=== PATIENT | female | born 1965 | race Caucasian/White ===

== ENCOUNTER 2023-01-09 17:53 | Inpatient (IN) | payer OTHER, SELFPAY ==
[~2023-01-09 17:53] MED LIST: Iopamidol-370 76% 500 ML MDV (1 ML CHARGE) ONE
[2023-01-09] MEDS ORDERED: Morphine 4 MG/ML VIAL ONE ×2 (18:29→20:02)
[2023-01-09] MEDS ORDERED: Ondansetron PF 4 MG/2 ML Vial ONE (18:59)
[2023-01-09 19:37] LABS: #Basophils 0.1 thou/uL (0.0-0.2); #Eosinphils 0.1 thou/uL (0.0-0.7); #Lymphocytes 1.1 thou/uL (1.20-3.40); #Monocytes 0.6 thou/uL (0.11-0.59); #Neutrophils 11.2 thou/uL (1.40-6.50); %Basophils 0.5 % (0.0-1.0); %Eosinophils 0.6 % (0.0-10.0); %Lymphocytes 8.3 % (21.0-51.0); %Monocytes 4.8 % (0.0-10.0); %Neutrophils 85.8 % (42.0-75.0); Hemoglobin 12.8 g/dL (12.0-16.0); Mean Corpuscular HGB CONC 33.7 g/dL (32.0-36.0); Mean Corpuscular Hemoglobin 30.6 pg (27.0-31.0); Mean Corpuscular Volume 90.9 fl (78.0-98.0); Mean Platelet Volume 7.6 fL (7.4-10.4); Platelet Count 209 10x3/uL (130-400); Red Blood Cell (RBC) Count 4.18 mill/uL (4.20-5.40); White Blood Cell (WBC) Count 13.1 10x3/uL (4.8-10.8)
[2023-01-09 19:48] LABS: INR-International Normal Ratio 0.9; Prothrombin Time 12.9 sec (12.0-14.7)
[2023-01-09 19:49] LABS: PTT 25.9 sec (22.9-36.1)
[2023-01-09 20:11] LABS: ALT (SGPT) 12 U/L (8-55); AST (SGOT) 38 U/L (5-34); Albumin 3.9 g/dL (3.5-5.0); Alkaline Phosphatase 80 U/L (40-110); Anion Gap 15 mmol/L (10-20); BUN (Urea Nitrogen) 20 mg/dL (9.8-20.1); Bilirubin, Total 0.2 mg/dL (0.2-1.2); Calc. Creatinine Clearance 0 mL/min (70-130); Calcium 8.9 mg/dL (7.8-10.44); Carbon Dioxide 18 mmol/L (22-29); Chloride 110 mmol/L (98-107); Estimated GFR 85; Glucose 111 mg/dL (70-105); Lipase 60 U/L (8-78); Potassium 4.4 mmol/L (3.5-5.1); Protein, Total 6.9 g/dL (6.0-8.3); Sodium 139 mmol/L (136-145)
[2023-01-09] MEDS ORDERED: PROPOFOL 20 ML ONE (21:14)
[2023-01-09] MEDS ORDERED: Ondansetron PF 4 MG/2 ML Vial IVP PRN (21:23)
[2023-01-09] MEDS ORDERED: Morphine 4 MG/ML VIAL SLOW IVP PRN (21:23)
[2023-01-09] MEDS ORDERED: Dextrose 50% Abboject 50 ML SYRINGE SLOW IVP PRN (21:23)
[2023-01-09] MEDS ORDERED: hydrALAZINE 20 MG/ML VIAL SLOW IVP PRN (21:23)
[2023-01-09] MEDS ORDERED: Dextrose 5% in Water 1,000 ML IV PRN (21:23)
[2023-01-09] MEDS ORDERED: Sodium Chloride 0.9% 1,000 ML IV SCH (21:30)
[2023-01-09 23:55] LABS: Magnesium 1.9 mg/dL (1.6-2.6); Phosphorus 2.6 mg/dL (2.3-4.7)
[2023-01-10] MEDS ORDERED: Acetaminophen 500 MG TAB ONE ×3 (00:16→08:39)
[2023-01-10] MEDS ORDERED: traMADol HCl 50 MG TAB ONE ×3 (00:16→10:29)
[2023-01-10] MEDS: Acetaminophen 500 MG TAB PO SCH ×5 (00:31→21:11)
[2023-01-10] MEDS: traMADol HCl 50 MG TAB PO SCH ×5 (00:31→21:10)
[2023-01-10 01:43] VITALS: BMI 33.0
[2023-01-10 06:17] LABS: #Lymphocytes 1.5 thou/uL (1.20-3.40); #Monocytes 0.6 thou/uL (0.11-0.59); #Neutrophils 6.4 thou/uL (1.40-6.50); %Basophils 0.2 % (0.0-1.0); %Eosinophils 0.6 % (0.0-10.0); %Lymphocytes 17.8 % (21.0-51.0); %Monocytes 6.7 % (0.0-10.0); %Neutrophils 74.7 % (42.0-75.0); Hemoglobin 12.4 g/dL (12.0-16.0); Mean Corpuscular HGB CONC 34.3 g/dL (32.0-36.0); Mean Corpuscular Hemoglobin 31.3 pg (27.0-31.0); Mean Corpuscular Volume 91.3 fl (78.0-98.0); Mean Platelet Volume 7.3 fL (7.4-10.4); Platelet Count 192 10x3/uL (130-400); RBC Distribution Width 12.9 % (11.5-14.5); Red Blood Cell (RBC) Count 3.96 mill/uL (4.20-5.40); White Blood Cell (WBC) Count 8.5 10x3/uL (4.8-10.8)
[2023-01-10 06:47] LABS: Anion Gap 12 mmol/L (10-20); BUN (Urea Nitrogen) 13 mg/dL (9.8-20.1); Calc. Creatinine Clearance 122 mL/min (70-130); Calcium 8.2 mg/dL (7.8-10.44); Carbon Dioxide 18 mmol/L (22-29); Chloride 111 mmol/L (98-107); Estimated GFR 95; Glucose 112 mg/dL (70-105); Magnesium 1.7 mg/dL (1.6-2.6); Phosphorus 3.4 mg/dL (2.3-4.7); Potassium 3.7 mmol/L (3.5-5.1); Sodium 137 mmol/L (136-145)
[2023-01-10] MEDS ORDERED: Famotidine 20 MG TAB ONE (08:39)
[2023-01-10] MEDS: Gabapentin 300 MG CAP PO SCH ×3 (10:59→21:10)
[2023-01-10] MEDS: Polyethylene Glycol 3350 17 GM Packet PO SCH (10:59)
[2023-01-10] MEDS: Famotidine 20 MG TAB PO SCH ×2 (10:59→21:10)
[2023-01-10] MEDS: Senokot S 8.6-50 MG TAB PO SCH ×2 (10:59→21:10)
[2023-01-10] MEDS ORDERED: Midazolam HCl 2 mg/2 ml Vial ONE (11:56)
[2023-01-10] MEDS ORDERED: Bupivacaine PF 0.5% 30 ML VIAL ONE (11:56)
[2023-01-10] MEDS ORDERED: fentaNYL 50 mcg/mL 1 mL Vial ONE (11:56)
[2023-01-10] MEDS ORDERED: CEFAZOLIN 2 GM in Sodium Chloride 0.9% 100 ML IVPB SCH (12:00)
[2023-01-10] MEDS ORDERED: Sodium Chloride 0.9% 100 ML ONE (12:12)
[2023-01-10] MEDS ORDERED: CEFAZOLIN 2 GM VIAL ONE (12:12)
[2023-01-10] MEDS ORDERED: fentaNYL PF 100 MCG/2 ML SYRINGE ONE (12:17)
[2023-01-10] MEDS ORDERED: Ondansetron PF 4 MG/2 ML Vial ONE (12:45)
[2023-01-10] MEDS ORDERED: Bupivacaine HCl 0.5%/Epinephrine 1:200,000/PF 30 ml Vial ONE (12:45)
[2023-01-10] MEDS ORDERED: PROPOFOL 200 MG/20 ML VIAL ONE (12:45)
[2023-01-10] MEDS ORDERED: Ketorolac Tromethamine 30 MG/ML VIAL ONE (12:45)
[2023-01-10] MEDS ORDERED: Lidocaine 1% PF 5 ML VIAL ONE (12:45)
[2023-01-10] MEDS ORDERED: Dexamethasone 20 MG/5 ML VIAL ONE (12:45)
[2023-01-10] MEDS ORDERED: Promethazine HCl 25 MG/ML VIAL ONE (14:28)
[2023-01-10] MEDS ORDERED: HYDROmorphone 0.5 MG/0.5 ML SYRINGE ONE (14:32)
[2023-01-10] MEDS ORDERED: Ondansetron HCl/PF 4 MG/2 ML Vial IVP PRN (14:34)
[2023-01-10] MEDS ORDERED: Promethazine HCl 25 MG/ML VIAL IM PRN (14:34)
[2023-01-10] MEDS ORDERED: HYDROmorphone 2 MG/ML VIAL SLOW IVP PRN (14:34)
[2023-01-10] MEDS: Ibuprofen 800 MG TAB PO PRN (19:14)
[2023-01-10] MEDS: traMADol HCl 50 MG TAB PO PRN (19:15)
[2023-01-10] MEDS: CEFAZOLIN 2 GM in Sodium Chloride 0.9% 100 ML IVPB SCH (21:09)
[2023-01-11] MEDS: traMADol HCl 50 MG TAB PO SCH ×4 (03:56→21:27)
[2023-01-11] MEDS: CEFAZOLIN 2 GM in Sodium Chloride 0.9% 100 ML IVPB SCH (03:56)
[2023-01-11] MEDS: Acetaminophen 500 MG TAB PO SCH ×4 (03:56→21:26)
[2023-01-11] MEDS: Senokot S 8.6-50 MG TAB PO SCH ×2 (10:04→21:26)
[2023-01-11] MEDS: Gabapentin 300 MG CAP PO SCH ×3 (10:06→21:28)
[2023-01-11] MEDS: Famotidine 20 MG TAB PO SCH ×2 (10:06→21:26)
[2023-01-11] MEDS: Polyethylene Glycol 3350 17 GM Packet PO SCH (10:08)
[2023-01-11 11:01] LABS: #Eosinphils 0.1 thou/uL (0.0-0.7); #Lymphocytes 1.9 thou/uL (1.20-3.40); #Monocytes 0.8 thou/uL (0.11-0.59); #Neutrophils 8.2 thou/uL (1.40-6.50); %Basophils 0.3 % (0.0-1.0); %Eosinophils 0.6 % (0.0-10.0); %Lymphocytes 17.1 % (21.0-51.0); %Monocytes 7.5 % (0.0-10.0); %Neutrophils 74.5 % (42.0-75.0); Hemoglobin 12.7 g/dL (12.0-16.0); Mean Corpuscular Hemoglobin 30.7 pg (27.0-31.0); Mean Corpuscular Volume 90.5 fl (78.0-98.0); Mean Platelet Volume 7.4 fL (7.4-10.4); Platelet Count 212 10x3/uL (130-400); Red Blood Cell (RBC) Count 4.13 mill/uL (4.20-5.40)
[2023-01-11 11:27] LABS: Anion Gap 12 mmol/L (10-20); BUN (Urea Nitrogen) 13 mg/dL (9.8-20.1); Calc. Creatinine Clearance 117 mL/min (70-130); Carbon Dioxide 22 mmol/L (22-29); Chloride 107 mmol/L (98-107); Estimated GFR 90; Glucose 90 mg/dL (70-105); Magnesium 2.1 mg/dL (1.6-2.6); Phosphorus 3.2 mg/dL (2.3-4.7); Potassium 3.9 mmol/L (3.5-5.1); Sodium 137 mmol/L (136-145)
[2023-01-11] MEDS: Cyclobenzaprine 10 MG TAB PO PRN (17:41)
[2023-01-11] MEDS: Ibuprofen 800 MG TAB PO PRN (18:50)
[2023-01-11] MEDS: traMADol HCl 50 MG TAB PO PRN (18:53)
[2023-01-12] MEDS: Acetaminophen 500 MG TAB PO SCH ×4 (04:11→20:39)
[2023-01-12] MEDS: traMADol HCl 50 MG TAB PO SCH ×4 (04:12→21:05)
[2023-01-12 07:17] LABS: #Basophils 0.1 thou/uL (0.0-0.2); #Eosinphils 0.3 thou/uL (0.0-0.7); #Lymphocytes 2.2 thou/uL (1.20-3.40); #Monocytes 0.6 thou/uL (0.11-0.59); #Neutrophils 4.5 thou/uL (1.40-6.50); %Eosinophils 4.2 % (0.0-10.0); %Lymphocytes 29.2 % (21.0-51.0); %Monocytes 7.2 % (0.0-10.0); %Neutrophils 58.4 % (42.0-75.0); Hemoglobin 11.7 g/dL (12.0-16.0); Mean Corpuscular HGB CONC 34.4 g/dL (32.0-36.0); Mean Corpuscular Hemoglobin 31.7 pg (27.0-31.0); Mean Corpuscular Volume 92.1 fl (78.0-98.0); Mean Platelet Volume 7.8 fL (7.4-10.4); Platelet Count 201 10x3/uL (130-400); RBC Distribution Width 12.9 % (11.5-14.5); White Blood Cell (WBC) Count 7.6 10x3/uL (4.8-10.8)
[2023-01-12] MEDS: Gabapentin 300 MG CAP PO SCH ×3 (11:07→20:38)
[2023-01-12] MEDS: Polyethylene Glycol 3350 17 GM Packet PO SCH (11:09)
[2023-01-12] MEDS: Senokot S 8.6-50 MG TAB PO SCH ×2 (11:09→20:38)
[2023-01-12] MEDS: Famotidine 20 MG TAB PO SCH ×2 (11:09→20:39)
[2023-01-12] MEDS: Diclofenac 1% 100 GM GEL TP SCH ×4 (15:42→20:57)
[2023-01-12] MEDS: Cyclobenzaprine 10 MG TAB PO PRN (19:27)
[2023-01-12] MEDS: Ibuprofen 800 MG TAB PO PRN (23:10)
[2023-01-13] MEDS: Acetaminophen 500 MG TAB PO SCH ×4 (04:06→21:26)
[2023-01-13] MEDS: traMADol HCl 50 MG TAB PO SCH ×4 (04:06→21:15)
[2023-01-13] MEDS: Senokot S 8.6-50 MG TAB PO SCH ×2 (09:13→21:15)
[2023-01-13] MEDS: Polyethylene Glycol 3350 17 GM Packet PO SCH (09:13)
[2023-01-13] MEDS: Gabapentin 300 MG CAP PO SCH ×3 (09:14→21:14)
[2023-01-13] MEDS: Famotidine 20 MG TAB PO SCH ×2 (09:15→21:14)
[2023-01-13] MEDS: Diclofenac 1% 100 GM GEL TP SCH ×4 (09:15→21:16)
[2023-01-14] MEDS: Acetaminophen 500 MG TAB PO SCH ×4 (03:51→20:58)
[2023-01-14] MEDS: traMADol HCl 50 MG TAB PO SCH ×4 (03:54→21:00)
[2023-01-14] MEDS: Polyethylene Glycol 3350 17 GM Packet PO SCH (09:39)
[2023-01-14] MEDS: Gabapentin 300 MG CAP PO SCH ×3 (09:40→20:59)
[2023-01-14] MEDS: Senokot S 8.6-50 MG TAB PO SCH ×2 (09:40→21:01)
[2023-01-14] MEDS: Famotidine 20 MG TAB PO SCH ×2 (09:40→20:59)
[2023-01-14] MEDS: Diclofenac 1% 100 GM GEL TP SCH ×4 (09:42→21:02)
[2023-01-15] MEDS: Acetaminophen 500 MG TAB PO SCH ×2 (04:08→08:47)
[2023-01-15] MEDS: traMADol HCl 50 MG TAB PO SCH ×2 (04:09→08:47)
[2023-01-15 08:28] VITALS: BP 134/85; TEMP 97.9
[2023-01-15] MEDS: Diclofenac 1% 100 GM GEL TP SCH ×2 (08:44→12:47)
[2023-01-15] MEDS: Famotidine 20 MG TAB PO SCH (08:46)
[2023-01-15] MEDS: Gabapentin 300 MG CAP PO SCH (08:46)
[2023-01-15] MEDS: Senokot S 8.6-50 MG TAB PO SCH (08:48)
[2023-01-15] MEDS: Polyethylene Glycol 3350 17 GM Packet PO SCH (08:48)
[2023-01-15] MEDS ORDERED: traMADol HCl 50 MG TAB PO PRN (13:19)
== END 2023-01-15 14:40 | disposition home or self-care (01) | DRG 494 ==
LOC: ERS 17:53 → ERHOLD 21:23 → SURG A 01-10 10:47 → SURG B 01-10 16:36
PROVIDERS: ADMIT Surgery; ATTEND Surgery
PROC: 0RSJXZZ Reposition Right Shoulder Joint, External Approach (ICD-10-PCS; 2023-01-09)
PROC: 0QSK04Z Reposition Left Fibula with Internal Fixation Device, Open Approach (ICD-10-PCS; principal; 2023-01-10)
PROC: 0QSH04Z Reposition Left Tibia with Internal Fixation Device, Open Approach (ICD-10-PCS; 2023-01-10)
DX: S82.852A Displaced trimalleolar fracture of left lower leg, initial encounter for closed fracture (principal); S43.004A Unspecified dislocation of right shoulder joint, initial encounter; W17.89XA Other fall from one level to another, initial encounter; E66.9 Obesity, unspecified; Z68.33 Body mass index [BMI] 33.0-33.9, adult
CPT/HCPCS: 29405; 36415; 70450; 71260; 72125; 74177; 80048; 80053; 83690; 83735; 83880; 84100; 85025; 85610; 85730; 93005; 94760; 96374; 96375; 96376; 99152; 99156; C1713; C1874; G0390; J1100; J1170; J1650; J1885; J2250; J2270; J2405; J2550; J2704; J3010; J3490; J7050; Q9967; S0020